=== PATIENT | male | born 1980 | race African-American/Black ===

== ENCOUNTER 2017-11-07 21:34 | Emergency (ER) | payer OTHER ==
[2017-11-07] MEDS ORDERED: DIPHTH,PERTUSS(ACELL),TET 0.5 ML DISP.SYRIN IM ONE (22:12)
--- NOTE | 2017-11-07 22:12 | PDOC ---
Rapid Medical Evaluation Time Seen by Provider: 11/07/17 22:09 Medical Evaluation: 11/07/17 22:09 I have performed a brief in-person evaluation of this patient. The patient presents with a chief complaint of: lac to left head s/p injury during bball game, unknown last tetanus Pertinent physical exam findings: 2 in lac to scalp I have ordered the following: tdap The patient will proceed to the ED for further evaluation. Discharge Disposition - Diagnosis Laceration of scalp - Referrals - Patient Instructions - Post Discharge Activity
[2017-11-07 22:15] VITALS: BP 143/82; PULSE 57; TEMP 98.5; BMI 20.5
--- NOTE | 2017-11-07 23:21 | PDOC ---
History of Present Illness - General Chief Complaint: Laceration Stated Complaint: HEAD INJURY Time Seen by Provider: 11/07/17 22:09 - History of Present Illness Initial Comments: 11/07/17 23:16 CHIEF COMPLAINT: laceration to scalp HISTORY OF PRESENT ILLNESS: 37 yo M with no significant PMH presents to ED with lac to scalp s/p injury during [employer] game. Patient reports colliding with another player's head. Patient denies LOC, nausea, vomiting, headache, dizzines. Patient is unsure of last tetanus shot. PAST MEDICAL HISTORY: Denies past medical history FAMILY HISTORY: Denies SOCIAL HISTORY:Denies tobacco, alcohol, illicit drug use. SURGICAL HISTORY: Denies ALLERGIES: No known drug allergies REVIEW OF SYSTEMS as per HPI PHYSICAL EXAM General Appearance: Well-appearing, appropriately dressed. No apparent distress , no intoxication. HEENT: EOMI, PERRLA, normal ENT inspection, normal voice, TMs normal, pharynx normal. No conjunctival pallor. No photophobia, scleral icterus. Respiratory/Chest: Lungs CTAB. Cardiovascular: RRR. S1, S2. Gastrointestinal/Abdominal: Normal bowel sounds. Abdomen soft, non-distended. No tenderness or rebound tenderness. No organomegaly, pulsatile mass, guarding , hernia, hepatomegaly, splenomegaly. Musculoskeletal/Extremities: Normal inspection. FROM of all extremities, normal capillary refill. Pelvis Stable. No CVA tenderness. No tenderness to extremities, pedal edema, swelling, erythema or deformity. Integumentary: 2 in. laceration to left scalp. Appropriate color, dry, warm. No cyanosis, erythema, jaundice or rash Neurologic: dairy clerk II-XII intact. Fully oriented, alert. Appropriate mood/affect. Motor strength 5/5. No appreciable EOM palsy, facial droop or sensory deficit. Past History - Past Medical History Allergies/Adverse Reactions: Allergies Allergy/AdvReac Type Severity Reaction Status Date / Time No Known Allergies Allergy Verified 11/07/17 22:11 Home Medications: Ambulatory Orders NK [No Known Home Medication] 11/07/17 COPD: No Other medical history: Pt denies - Suicide/Smoking/Psychosocial Hx Smoking History: Current every day smoker Have you smoked in the past 12 months: Yes Number of Cigarettes Smoked Daily: 7 Information on smoking cessation initiated: No Hx Alcohol Use: No Drug/Substance Use Hx: Yes (marijuana) Substance Use Type: Marijuana *Physical Exam - Vital Signs Last Vital Signs Temp Pulse Resp BP Pulse Ox 98.5 F 57 L 18 143/82 100 11/07/17 22:12 11/07/17 22:12 11/07/17 22:12 11/07/17 22:12 11/07/17 22:12 Procedures - Consent Consent obtained: Verbal - Laceration/Wound Repair Left Lateral Head Wound Length: 2.6 to 5.0 cm Wound Explored: clean Wound's Depth, Shape: superficial, linear Irrigated w/ Saline: Yes Betadine Prep: Yes Wound Repaired With: Sutures (3 candi) ED Treatment Course - Medications Given in the ED: ED Medications Discontinued Medications Generic Name Dose Route Start Last Admin Trade Name Freq PRN Reason Stop Dose Admin Diphtheria/Tetanus/Acell Pertussis 0.5 ml 11/07/17 22:12 11/07/17 22:40 Boostrix - IM 11/07/17 22:13 0.5 ml .ONCE ONE Administration Medical Decision Making - Medical Decision Making 11/07/17 23:21 37 yo M with no significant PMH presents to ED with lac to scalp s/p injury during [employer] game. lac repair performed with 3 candi, patient tolerated well. edges well approximated, no bleeding at this time. patient neurologically intact. *DC/Admit/Observation/Transfer Diagnosis at time of Disposition: Laceration of scalp - Discharge Dispostion Disposition: HOME Condition at time of disposition: Stable Admit: No - Referrals - Patient Instructions Printed Discharge Instructions: DI for Laceration Repair -- Candi Additional Instructions: As discussed, please keep area of laceration clean and dry for the next 24-48 hours. Afterwards you may wash with mild soap and water. Return to fast track or your primary care doctor for staple removal in 10 days. If you experience any redness, swelling, streaking, warmth, to the site of the cut, or develop fever, nausea, vomiting, or diarrhea, please return to the ER. - Post Discharge Activity
== END 2017-11-07 23:31 | disposition home or self-care (01) ==
LOC: JERFT 21:34
PROC: 3E0234Z Introduction of Serum, Toxoid and Vaccine into Muscle, Percutaneous Approach (ICD-10-PCS; principal; 2017-11-07)
PROC: 0HQ0XZZ Repair Scalp Skin, External Approach (ICD-10-PCS; 2017-11-07)
DX: S01.01XA Laceration without foreign body of scalp, initial encounter (principal); W51.XXXA Accidental striking against or bumped into by another person, initial encounter; Y93.67 Activity, basketball; Y92.310 Basketball court as the place of occurrence of the external cause; Y99.8 Other external cause status
CPT/HCPCS: 90715; 99281-25

== ENCOUNTER 2021-08-23 18:58 | Emergency (ER) | payer OTHER ==
[2021-08-23 19:18] VITALS: BP 132/82; PULSE 77; TEMP 97.9; BMI 24.3
== END 2021-08-23 20:10 | disposition home or self-care (01) ==
LOC: JERFT 18:58
DX: Z48.02 Encounter for removal of sutures (principal)
CPT/HCPCS: 99281-25